=== PATIENT | female | born 1935 | race Caucasian/White ===

== ENCOUNTER 2017-08-21 11:04 | Inpatient (IN) | payer BC, OTHER ==
[~2017-08-21] VITALS: Ht 157.5 cm; Wt 102.5 kg
[~2017-08-21 11:04] MED LIST: ADVAIR 250/501 DISK IH; ALBUTEROL SULF8.5 GM IH; BETAPACE80 MG PO; CADUET 10/201 TABLET PO; CLONIDINE HCL0.1 MG PO; COUMADIN5 MG PO; COZAAR50 MG PO; FLONASE16 G1 BOTH NARES; LASIX40 MG PO; NORCO 5/3251 TABLET PO; OXYCODONE HCL5 MG PO; PROZAC20 MG PO
[2017-08-21 13:29] LABS: BASOPHIL (%) 0.3 % (0-1); EOSINOPHIL (%) 0.4 % (0-5); HEMATOCRIT 44.2 % (36.0-46.0); HEMOGLOBIN 14.3 G/DL (11.9-15.5); IMMATURE GRANULOCYTE (%) 0.8 % (0.0-0.7); LYMPHOCYTE (%) 6.6 % (15-42); LYMPHOCYTE COUNT 0.6 K/uL (1.0-2.8); MCH 28.2 PG (29.0-34.0); MCHC 32.4 G/DL (30.0-36.0); MCV 87.2 FL (83-99); MONOCYTE (%) 3.9 % (3-12); MONOCYTE COUNT 0.4 K/uL (0-0.8); NRBC (%) 0.2 /100 WBC (0-0); PLATELET COUNT 159 K/uL (156-360); RBC DIS.WIDTH-CV 14.1 % (11.8-14.6); RED BLOOD COUNT 5.07 M/uL (3.80-5.20); WHITE BLOOD COUNT 9.1 K/uL (4.1-10.2)
[2017-08-21 13:37] LABS: APPEARANCE SL.HAZY ((CLEAR)); COLOR LT YELLOW ((YELLOW))
[2017-08-21 13:38] LABS: BILIRUBIN NEGATIVE; GLUCOSE (STRIP) NEGATIVE; KETONES NEGATIVE
[2017-08-21 13:39] LABS: CHLORIDE 106 mEq/L (99-109)
[2017-08-21 13:39] LABS: BLOOD TRACE; PROTEIN (STRIP) TRACE
[2017-08-21 13:40] LABS: SODIUM 144 mEq/L (136-147)
[2017-08-21 13:40] LABS: LEUKOCYTES TRACE; NITRITE NEGATIVE; UROBILINOGEN 0.2 MG/DL (0.2-1.0)
[2017-08-21 13:41] LABS: GLUCOSE 178 mg/dL (70-99)
[2017-08-21 13:45] LABS: CREATININE 0.7 mg/dL (0.6-1.3); GFR ESTIMATE (CALCULATED) > 59 mL/min/
[2017-08-21 13:46] LABS: UREA NITROGEN (BUN) 15 mg/dL (9-23)
[2017-08-21 14:48] LABS: BACTERIA NONE SEEN /HPF; EPITHELIAL CELLS RARE /HPF; MUCUS NONE SEEN /LPF; RED BLOOD CELLS RARE /HPF (0-5); WHITE BLOOD CELLS RARE /HPF (0-5)
[2017-08-21] MEDS ORDERED: NORVASC5 MG PO (15:52)
[2017-08-21] MEDS ORDERED: LIPITOR20 MG PO (15:53)
[2017-08-21] MEDS ORDERED: CALCIUM 600 +1 EA13 PO (15:55)
[2017-08-21] MEDS ORDERED: THERA-D2000 UNIT PO (15:57)
[2017-08-21] MEDS ORDERED: KLOR-CON M2020 MEQ PO (16:01)
[2017-08-21] MEDS ORDERED: MIRALAX255 GM PO (16:03)
[2017-08-21] MEDS ORDERED: FLUOXETINE HCL60 MG PO (16:05)
[2017-08-21] MEDS ORDERED: ACID CONTROL150 MG PO (16:06)
[2017-08-21] MEDS ORDERED: SINGULAIR10 MG PO (16:07)
[2017-08-21] MEDS ORDERED: SPIRIVA18 MCG IH (16:08)
[2017-08-21] MEDS ORDERED: XARELTO20 MG PO (16:08)
[2017-08-21] MEDS ORDERED: ARTIFICIALS TEA30 ML BOTH EYES (16:11)
[2017-08-21] MEDS ORDERED: SOTALOL80 MG PO (16:12)
[2017-08-21] MEDS ORDERED: DUONEB 2.5-0.5 M3 ML AEROSOL (16:13)
[2017-08-21] MEDS ORDERED: TYLENOL325 M2 PO (16:14)
[2017-08-21 18:35] VITALS: BP 110/74
[2017-08-21 23:16] VITALS: BP 125/82
[2017-08-22 04:22] VITALS: BP 112/62
[2017-08-22 05:12] LABS: HEMATOCRIT 45.4 % (36.0-46.0); HEMOGLOBIN 14.4 G/DL (11.9-15.5); MCH 27.5 PG (29.0-34.0); MCHC 31.7 G/DL (30.0-36.0); MCV 86.6 FL (83-99); PLATELET COUNT 164 K/uL (156-360); RBC DIS.WIDTH-CV 14.1 % (11.8-14.6); RBC DIS.WIDTH-SD 44.5 % (39-53); RED BLOOD COUNT 5.24 M/uL (3.80-5.20); WHITE BLOOD COUNT 8.6 K/uL (4.1-10.2)
[2017-08-22 05:41] LABS: CHLORIDE 103 MEQ/L (99-109); GFR ESTIMATE (CALCULATED) 46 mL/min/; GLUCOSE 165 mg/dL (70-99); SODIUM 141 MEQ/L (136-147)
[2017-08-22 05:43] LABS: CREATININE 1.2 MG/DL (0.6-1.3); UREA NITROGEN (BUN) 23 mg/dL (9-23)
[2017-08-22 08:03] VITALS: BP 131/79
[2017-08-22 11:46] VITALS: BP 108/62
[2017-08-22 16:34] VITALS: BP 106/74
[2017-08-22 19:34] VITALS: BP 112/70
[2017-08-22 23:09] VITALS: BP 114/87
[2017-08-23 04:02] VITALS: BP 124/70
[2017-08-23 05:52] LABS: HEMATOCRIT 43.1 % (36.0-46.0); HEMOGLOBIN 13.8 G/DL (11.9-15.5)
[2017-08-23 06:34] LABS: CHLORIDE 104 MEQ/L (99-109); CREATININE 1.2 MG/DL (0.6-1.3); GFR ESTIMATE (CALCULATED) 46 mL/min/; POTASSIUM 3.9 MEQ/L (3.7-5.4); SODIUM 139 MEQ/L (136-147)
[2017-08-23 06:35] LABS: GLUCOSE 118 mg/dL (70-99); UREA NITROGEN (BUN) 42 mg/dL (9-23)
[2017-08-23 09:44] VITALS: BP 110/76
[2017-08-23 16:39] VITALS: BP 122/56
== END 2017-08-23 21:00 | DRG 470 ==
LOC: EME 11:04 → 3EAST 15:32 → EDOF 15:32 → ENRESERV 15:33 → 3EAST 17:59
PROVIDERS: Emergency Medicine; Internal Medicine; Orthopaedic Surgery
PROC: 0SRS0J9 Replacement of Left Hip Joint, Femoral Surface with Synthetic Substitute, Cemented, Open Approach (ICD-10-PCS; principal; 2017-08-23)
DX: S72.032A Displaced midcervical fracture of left femur, initial encounter for closed fracture (principal); W18.30XA Fall on same level, unspecified, initial encounter; Y92.121 Bathroom in nursing home as the place of occurrence of the external cause; I97.711 Intraoperative cardiac arrest during other surgery; Y83.8 Other surgical procedures as the cause of abnormal reaction of the patient, or of later complication, without mention of misadventure at the time of the procedure; G30.9 Alzheimer's disease, unspecified; F02.80 Dementia in other diseases classified elsewhere, unspecified severity, without behavioral disturbance, psychotic disturbance, mood disturbance, and anxiety; R13.10 Dysphagia, unspecified; I10 Essential (primary) hypertension; I48.2 Chronic atrial fibrillation; J44.9 Chronic obstructive pulmonary disease, unspecified; I44.4 Left anterior fascicular block; E03.9 Hypothyroidism, unspecified; E78.5 Hyperlipidemia, unspecified; K21.9 Gastro-esophageal reflux disease without esophagitis; Z66 Do not resuscitate; Z22.322 Carrier or suspected carrier of Methicillin resistant Staphylococcus aureus; E66.9 Obesity, unspecified; Z68.41 Body mass index [BMI] 40.0-44.9, adult; Z79.01 Long term (current) use of anticoagulants; F32.9 Major depressive disorder, single episode, unspecified; Z91.81 History of falling; Z87.891 Personal history of nicotine dependence
CPT/HCPCS: 70450; 71045; 73502; 73700; 80048; 81003; 85014; 85018; 85025; 85027; 86850; 86900; 86901; 87641; 92610 GN; 93005; 94002; 99281; 99285; C1713; C1755; J0330; J0690; J1170; J3010; J3370; J7030; P9045